=== PATIENT | male | born 1960 | race African-American/Black ===

== ENCOUNTER 2017-03-27 19:36 | Emergency (ER) | payer OTHER ==
[2017-03-27] MEDS ORDERED: Dexamethasone 4 MG TAB ONE (19:50)
== END 2017-03-27 20:02 | disposition home or self-care (01) ==
LOC: MADERS 19:36
DX: L25.5 Unspecified contact dermatitis due to plants, except food (principal); I10 Essential (primary) hypertension; F32.9 Major depressive disorder, single episode, unspecified; F17.210 Nicotine dependence, cigarettes, uncomplicated; Z79.899 Other long term (current) drug therapy
CPT/HCPCS: 99282; J8540

== ENCOUNTER 2017-04-05 15:59 | Emergency (ER) | payer OTHER ==
[2017-04-05] MEDS ORDERED: Tobramycin Sulfate 0.3% Ophth Susp 5 ml Bottle ONE (17:25)
[2017-04-05] MEDS ORDERED: HYDROcodone/Acetaminophen 10/325 mg Tablet ONE (17:29)
[2017-04-05] MEDS ORDERED: Naproxen 500 MG TAB ONE (17:29)
== END 2017-04-05 17:40 | disposition home or self-care (01) ==
LOC: MADERS 15:59
DX: S05.01XA Injury of conjunctiva and corneal abrasion without foreign body, right eye, initial encounter (principal); I10 Essential (primary) hypertension; F32.9 Major depressive disorder, single episode, unspecified; F17.210 Nicotine dependence, cigarettes, uncomplicated; X58.XXXA Exposure to other specified factors, initial encounter
CPT/HCPCS: 99283

== ENCOUNTER 2017-07-23 07:45 | Emergency (ER) | payer OTHER ==
[2017-07-23] MEDS ORDERED: Ketorolac Tromethamine 60 MG/2 ML VIAL ONE (08:28)
--- NOTE | 2017-07-23 09:24 | RAD ---
FOUR VIEWS RIGHT KNEE: HISTORY: Fall earlier in the day with right-sided knee pain. FINDINGS: AP, lateral, and both oblique views right knee are obtained. Four views right knee demonstrate no evidence of right knee fractures, subluxations, or bony lesions. IMPRESSION: Normal 4 views right knee. POS: C
--- NOTE | 2017-07-23 09:25 | RAD ---
THREE VIEWS RIGHT SHOULDER: HISTORY: Pain with fall. FINDINGS: AP internally, externally, and scapula-Y views right shoulder are obtained. There is some mild right AC Joint degenerative changes and osteophytes. No evidence of acute fractur es, subluxations, or bony lesions seen. IMPRESSION: Normal 3 views right shoulder. POS: C
--- NOTE | 2017-07-23 09:28 | RAD ---
AP VIEW CHEST: HISTORY: Fall with right-sided pain. FINDINGS: AP vie chest is obtained. Ectasia of the aorta is seen. The lungs are well aerated. No evidence of active intrathoracic disea se is seen. No evidence of effusions, pneumothorax is seen. IMPRESSION: Unremarkable AP view chest. POS: C
== END 2017-07-23 09:30 | disposition home or self-care (01) ==
LOC: MADERS 07:45
DX: S43.401A Unspecified sprain of right shoulder joint, initial encounter (principal); S80.01XA Contusion of right knee, initial encounter; M54.9 Dorsalgia, unspecified; I10 Essential (primary) hypertension; G89.29 Other chronic pain; F32.9 Major depressive disorder, single episode, unspecified; F17.210 Nicotine dependence, cigarettes, uncomplicated; Z79.899 Other long term (current) drug therapy; W01.0XXA Fall on same level from slipping, tripping and stumbling without subsequent striking against object, initial encounter
CPT/HCPCS: 71010; 96372; J1885

== ENCOUNTER 2018-03-27 11:18 | Emergency (ER) | payer OTHER ==
[2018-03-27] MEDS ORDERED: Proparacaine 0.5% Opth 15 ML BOT ONE (12:08)
== END 2018-03-27 12:51 | disposition home or self-care (01) ==
LOC: MADERS 11:18
DX: L23.7 Allergic contact dermatitis due to plants, except food (principal); H10.9 Unspecified conjunctivitis; I10 Essential (primary) hypertension; F17.210 Nicotine dependence, cigarettes, uncomplicated
CPT/HCPCS: 99282

== ENCOUNTER 2018-06-08 08:46 | Emergency (ER) | payer OTHER | END 2018-06-08 09:10 | disposition home or self-care (01) | LOC: MADERS 08:46 | DX: L25.5 Unspecified contact dermatitis due to plants, except food (principal); K02.9 Dental caries, unspecified | CPT/HCPCS: 99283 ==

== ENCOUNTER 2019-03-09 08:43 | Emergency (ER) | payer OTHER ==
[2019-03-09] MEDS ORDERED: Ibuprofen 800 MG TAB ONE ×2 (09:04→09:07)
== END 2019-03-09 09:05 | disposition home or self-care (01) ==
LOC: MADERS 08:43
DX: L23.7 Allergic contact dermatitis due to plants, except food (principal); K02.9 Dental caries, unspecified; F32.9 Major depressive disorder, single episode, unspecified; I10 Essential (primary) hypertension; F17.210 Nicotine dependence, cigarettes, uncomplicated; Z79.899 Other long term (current) drug therapy
CPT/HCPCS: 99282

== ENCOUNTER 2019-05-14 17:56 | Emergency (ER) | payer OTHER | END 2019-05-14 18:44 | disposition home or self-care (01) | LOC: MADERS 17:56 | DX: L23.7 Allergic contact dermatitis due to plants, except food (principal); I10 Essential (primary) hypertension; F17.210 Nicotine dependence, cigarettes, uncomplicated; F32.9 Major depressive disorder, single episode, unspecified; Z79.899 Other long term (current) drug therapy | CPT/HCPCS: 99282 ==

== ENCOUNTER 2019-08-27 09:42 | Emergency (ER) | payer OTHER | END 2019-08-27 10:11 | disposition home or self-care (01) | LOC: MADERS 09:42 | DX: K64.9 Unspecified hemorrhoids (principal); F32.9 Major depressive disorder, single episode, unspecified; I10 Essential (primary) hypertension; F17.210 Nicotine dependence, cigarettes, uncomplicated; Z79.899 Other long term (current) drug therapy | CPT/HCPCS: 99282 ==

== ENCOUNTER 2020-09-29 11:55 | Emergency (ER) | payer OTHER ==
--- NOTE | 2020-09-29 12:29 | RAD ---
Exam: XR Shoulder Rt 3 View STANDARD HISTORY: Right shoulder pain after a fall. COMPARISON: 07/23/2017 FINDINGS: The distal right clavicle is superiorly and mildly posteriorly displaced with respect to the acromion which does represent an interval change when compared to the prior exam and suggests acromioclavicular joint separation. No fracture or dislocation is otherwise seen. No other interval c hange. IMPRESSION: Imaging findings most suggestive of a grade 4 acromioclavicular joint separation. No fracture is seen .
[2020-09-29] MEDS ORDERED: HYDROcodone/Acetaminophen 5/325 mg Tablet ONE (12:38)
== END 2020-09-29 13:03 | disposition home or self-care (01) ==
LOC: MADERS 11:55
DX: S43.101A Unspecified dislocation of right acromioclavicular joint, initial encounter (principal); I10 Essential (primary) hypertension; F17.290 Nicotine dependence, other tobacco product, uncomplicated; Z79.899 Other long term (current) drug therapy; W18.30XA Fall on same level, unspecified, initial encounter

== ENCOUNTER 2021-10-19 16:37 | Emergency (ER) | payer OTHER ==
[~2021-10-19 16:37] MED LIST: Sodium Chloride 0.9% 1,000 ML BAG ONE
[2021-10-19] MEDS ORDERED: Sodium Chloride 0.9% 100 ML ONE (17:46)
[2021-10-19] MEDS ORDERED: Sodium Chloride 0.9% 1,000 ML ONE (17:46)
[2021-10-19] MEDS ORDERED: Cefepime 2 GM VIAL ONE (17:46)
[2021-10-19 18:07] LABS: Band 3 % (5-11); Hemoglobin 14.2 g/dL (14.0-18.0); Lymphocytes 8 % (21-51); MDiff Complete? YES; Mean Corpuscular HGB CONC 32.9 g/dL (32.0-36.0); Mean Corpuscular Volume 88.1 fL (78.0-98.0); Mean Platelet Volume 6.4 fL (7.4-10.4); Monocytes 9 % (0-10); Neutrophil 80 % (42-75); Platelet Count 288 thou/uL (130-400); Platelet Morphology Comment Appears Adequate; RBC Distribution Width 10.6 % (11.5-14.5); Red Blood Cell (RBC) Count 4.91 mill/uL (4.70-6.10); White Blood Cell (WBC) Count 26.1 thou/uL (4.8-10.8)
[2021-10-19 18:08] LABS: ALT (SGPT) 24 U/L (8-55); AST (SGOT) 33 U/L (5-34); Albumin 3.5 g/dL (3.4-4.8); Alkaline Phosphatase 98 U/L (40-110); Anion Gap 15 mmol/L (10-20); BUN (Urea Nitrogen) 15 mg/dL (8.4-25.7); CK (CPK) 326 U/L (30-200); Calc. Creatinine Clearance 0 mL/min (70-130); Calcium 8.8 mg/dL (7.8-10.44); Carbon Dioxide 25 mmol/L (23-31); Chloride 100 mmol/L (98-107); Globulin 3.4 g/dL (2.4-3.5); Glucose 113 mg/dL (80-115); Potassium 3.9 mmol/L (3.5-5.1); Protein, Total 6.9 g/dL (5.8-8.1); Sodium 136 mmol/L (136-145)
[2021-10-19 18:12] LABS: Bilirubin Negative (Negative); Blood, Urine Large (Negative); Clarity Slightly Cloudy (Clear); Glucose, Urine (Dipstick) Negative (Negative); Ketone, Urine Negative (Negative); Leukocyte Moderate (Negative); Nitrite Positive (Negative); Protein, Urine (Dipstick) Trace mg/dL (Neg-Trace)
[2021-10-19 18:20] LABS: RBC/HPF Greater than 50 HPF (0-3)
[2021-10-19 18:21] LABS: Amphetamine Detected (NotDetected); Bacteria/HPF 2+ HPF (None Seen); Barbiturates Screen Not Detected (NotDetected); Benzodiazepine Screen Not Detected (NotDetected); Cocaine Metabolite Screen Not Detected (NotDetected); Medtox Control Line Valid? VALID (VALID); Methadone Not Detected (NotDetected); Methamphetamine Detected (NotDetected); Opiate Screen Not Detected (NotDetected); Oxycodone Screen Not Detected (NotDetected); Phencyclidine (PCP) Not Detected (NotDetected); Squamous Epithelial 0-3 HPF (0-3); THC/Cannabinoid Screen Detected (NotDetected); Tricyclic Screen Not Detected (NotDetected); WBC/HPF Greater Than 50 HPF (0-3)
[2021-10-19] MEDS ORDERED: Ibuprofen 800 MG TAB ONE (18:30)
[2021-10-21 11:52] LABS: Chlam.trachomatis by PCR,Urine Not Detected (NotDetected)
== END 2021-10-19 21:25 | disposition home or self-care (01) ==
LOC: MADERS 16:37
DX: N45.3 Epididymo-orchitis (principal); F15.20 Other stimulant dependence, uncomplicated; E86.0 Dehydration; I10 Essential (primary) hypertension; F17.200 Nicotine dependence, unspecified, uncomplicated; Z79.899 Other long term (current) drug therapy
CPT/HCPCS: 36415; 71045; 80053; 80306; 81003; 81015; 82550; 83605; 85025; 86140; 87040; 87077; 87086; 87186; 87491; 87591; 96365; 96366; J0692; J1956; J3490; J7050

== ENCOUNTER 2022-08-01 17:33 | Emergency (ER) | payer OTHER ==
[2022-08-01 18:46] LABS: #Basophils 0.1 thou/uL (0.0-0.2); #Eosinphils 0.3 thou/uL (0.0-0.7); #Lymphocytes 2.2 thou/uL (1.20-3.40); #Monocytes 0.7 thou/uL (0.11-0.59); #Neutrophils 4.2 thou/uL (1.40-6.50); %Basophils 1.4 % (0.0-1.0); %Eosinophils 4.1 % (0.0-10.0); %Lymphocytes 28.5 % (21.0-51.0); %Monocytes 9.6 % (0.0-10.0); %Neutrophils 56.3 % (42.0-75.0); Hemoglobin 13.3 g/dL (14.0-18.0); Mean Corpuscular HGB CONC 32.2 g/dL (32.0-36.0); Mean Corpuscular Hemoglobin 30.1 pg (27.0-31.0); Mean Corpuscular Volume 93.5 fl (78.0-98.0); Mean Platelet Volume 5.9 fL (7.4-10.4); Platelet Count 359 10x3/uL (130-400); RBC Distribution Width 11.9 % (11.5-14.5); Red Blood Cell (RBC) Count 4.41 mill/uL (4.70-6.10); White Blood Cell (WBC) Count 7.5 10x3/uL (4.8-10.8)
[2022-08-01 19:00] LABS: INR-International Normal Ratio 0.9; Prothrombin Time 12.4 sec (12.0-14.7)
[2022-08-01 19:01] LABS: PTT 37.9 sec (22.9-36.1)
[2022-08-01 19:02] LABS: Anion Gap 12 mmol/L (10-20); BUN (Urea Nitrogen) 11 mg/dL (8.4-25.7); CK (CPK) 412 U/L (30-200); Calc. Creatinine Clearance 0 mL/min (70-130); Calcium 8.9 mg/dL (7.8-10.44); Carbon Dioxide 28 mmol/L (23-31); Chloride 104 mmol/L (98-107); Estimated GFR 76; Glucose 74 mg/dL (80-115); Potassium 3.8 mmol/L (3.5-5.1); Sodium 140 mmol/L (136-145)
[2022-08-01 19:03] LABS: D-Dimer Test 0.49 *mcg/mL (0.27-0.43)
[2022-08-01 19:05] LABS: CKMB 10.2 ng/mL (0-6.6)
[2022-08-01] MEDS ORDERED: Furosemide 40 MG TAB ONE (19:34)
[2022-08-01] MEDS ORDERED: Amlodipine 5 MG TAB ONE (19:34)
== END 2022-08-01 19:41 | disposition home or self-care (01) ==
LOC: MADERS 17:33
DX: R60.9 Edema, unspecified (principal); I10 Essential (primary) hypertension; F17.200 Nicotine dependence, unspecified, uncomplicated
CPT/HCPCS: 80048; 82550; 82553; 83880; 84484; 85025; 85379; 85610; 85730; 93005

== ENCOUNTER 2022-09-26 14:36 | Emergency (ER) | payer OTHER ==
[2022-09-26 17:23] LABS: #Basophils 0.2 thou/uL (0.0-0.2); #Eosinphils 1.1 thou/uL (0.0-0.7); #Lymphocytes 2.4 thou/uL (1.20-3.40); %Basophils 1.7 % (0.0-1.0); %Lymphocytes 25.1 % (21.0-51.0); %Monocytes 10.5 % (0.0-10.0); %Neutrophils 51.8 % (42.0-75.0); Hemoglobin 15.5 g/dL (14.0-18.0); Mean Corpuscular Hemoglobin 29.1 pg (27.0-31.0); Mean Platelet Volume 6.7 fL (7.4-10.4); Platelet Count 416 10x3/uL (130-400); RBC Distribution Width 11.9 % (11.5-14.5); Red Blood Cell (RBC) Count 5.33 mill/uL (4.70-6.10); White Blood Cell (WBC) Count 9.7 10x3/uL (4.8-10.8)
[2022-09-26 17:45] LABS: ALT (SGPT) 24 U/L (8-55); AST (SGOT) 31 U/L (5-34); Albumin 3.6 g/dL (3.4-4.8); Alkaline Phosphatase 139 U/L (40-110); Anion Gap 16 mmol/L (10-20); BUN (Urea Nitrogen) 14 mg/dL (8.4-25.7); Bilirubin, Total 0.4 mg/dL (0.2-1.2); Calc. Creatinine Clearance 0 mL/min (70-130); Calcium 9.1 mg/dL (7.8-10.44); Carbon Dioxide 23 mmol/L (23-31); Chloride 103 mmol/L (98-107); Estimated GFR 76; Globulin 4.1 g/dL (2.4-3.5); Glucose 82 mg/dL (80-115); Potassium 4.3 mmol/L (3.5-5.1); Protein, Total 7.7 g/dL (5.8-8.1); Sodium 138 mmol/L (136-145)
[2022-09-26] MEDS ORDERED: Amlodipine 5 MG TAB ONE (18:43)
== END 2022-09-26 18:47 | disposition home or self-care (01) ==
LOC: MADERS 14:36
DX: L03.115 Cellulitis of right lower limb (principal); I10 Essential (primary) hypertension; F17.210 Nicotine dependence, cigarettes, uncomplicated
CPT/HCPCS: 83880; 85379; 93005; 36415-59

== ENCOUNTER 2022-10-04 04:22 | Emergency (ER) | payer OTHER ==
[2022-10-04] MEDS ORDERED: Ketorolac Tromethamine 60 MG/2 ML VIAL ONE (05:06)
[2022-10-04] MEDS ORDERED: Acetaminophen 500 MG TAB ONE (05:06)
[2022-10-04 05:22] LABS: #Basophils 0.1 thou/uL (0.0-0.2); #Eosinphils 0.4 thou/uL (0.0-0.7); #Lymphocytes 2.1 thou/uL (1.20-3.40); #Monocytes 0.8 thou/uL (0.11-0.59); #Neutrophils 4.6 thou/uL (1.40-6.50); %Basophils 1.4 % (0.0-1.0); %Eosinophils 5.2 % (0.0-10.0); %Lymphocytes 25.9 % (21.0-51.0); %Monocytes 10.4 % (0.0-10.0); %Neutrophils 57.1 % (42.0-75.0); Hemoglobin 14.7 g/dL (14.0-18.0); Mean Corpuscular HGB CONC 32.7 g/dL (32.0-36.0); Mean Corpuscular Hemoglobin 29.3 pg (27.0-31.0); Mean Corpuscular Volume 89.5 fl (78.0-98.0); Mean Platelet Volume 5.8 fL (7.4-10.4); Platelet Count 401 10x3/uL (130-400); RBC Distribution Width 11.3 % (11.5-14.5); Red Blood Cell (RBC) Count 5.01 mill/uL (4.70-6.10); White Blood Cell (WBC) Count 8.1 10x3/uL (4.8-10.8)
[2022-10-04 05:29] LABS: Bilirubin Negative (Negative); Blood, Urine Negative (Negative); Clarity Clear (Clear); Glucose, Urine (Dipstick) Negative (Negative); Ketone, Urine Negative (Negative); Leukocyte Negative (Negative); Nitrite Negative (Negative); Protein, Urine (Dipstick) Negative (Neg-Trace)
[2022-10-04 05:30] LABS: Specific Gravity, Urine 1.026 (1.002-1.036)
[2022-10-04 05:41] LABS: ALT (SGPT) 27 U/L (8-55); AST (SGOT) 31 U/L (5-34); Albumin 3.5 g/dL (3.4-4.8); Alkaline Phosphatase 152 U/L (40-110); Anion Gap 14 mmol/L (10-20); BUN (Urea Nitrogen) 17 mg/dL (8.4-25.7); Bilirubin, Total 0.2 mg/dL (0.2-1.2); Calc. Creatinine Clearance 0 mL/min (70-130); Calcium 9.3 mg/dL (7.8-10.44); Carbon Dioxide 25 mmol/L (23-31); Chloride 103 mmol/L (98-107); Estimated GFR 92; Globulin 3.8 g/dL (2.4-3.5); Glucose 88 mg/dL (80-115); Potassium 3.8 mmol/L (3.5-5.1); Protein, Total 7.3 g/dL (5.8-8.1); Sodium 138 mmol/L (136-145)
== END 2022-10-04 06:14 | disposition short-term general hospital (02) ==
LOC: MADERS 04:22
DX: I83.218 Varicose veins of right lower extremity with both ulcer of other part of lower extremity and inflammation (principal); I10 Essential (primary) hypertension; F17.200 Nicotine dependence, unspecified, uncomplicated; Z79.899 Other long term (current) drug therapy; R79.1 Abnormal coagulation profile
CPT/HCPCS: 36415; 80053; 81003; 83880; 85025; 85379; 96372; 99284; J1885

== ENCOUNTER 2022-10-31 20:49 | Emergency (ER) | payer OTHER ==
[2022-10-31] MEDS ORDERED: Acetaminophen 500 MG TAB ONE (21:46)
== END 2022-10-31 22:09 | disposition home or self-care (01) ==
LOC: MADERS 20:49
DX: Z48.00 Encounter for change or removal of nonsurgical wound dressing (principal); I10 Essential (primary) hypertension; F17.200 Nicotine dependence, unspecified, uncomplicated
CPT/HCPCS: 99283

== ENCOUNTER 2023-03-09 19:46 | Emergency (ER) | payer OTHER ==
[2023-03-09] MEDS ORDERED: Piperacillin/Tazobactam 3.375 GM VIAL ONE (20:51)
[2023-03-09] MEDS ORDERED: Sodium Chloride 0.9% 100 ML ONE ×2 (20:51→21:11)
[2023-03-09] MEDS ORDERED: Amlodipine 5 MG TAB ONE (20:52)
[2023-03-09 20:58] LABS: #Basophils 0.2 thou/uL (0.0-0.2); #Eosinphils 0.2 thou/uL (0.0-0.7); #Lymphocytes 1.9 thou/uL (1.20-3.40); #Monocytes 1.1 thou/uL (0.11-0.59); #Neutrophils 4.5 thou/uL (1.40-6.50); %Basophils 2.3 % (0.0-1.0); %Eosinophils 2.6 % (0.0-10.0); %Lymphocytes 24.3 % (21.0-51.0); %Monocytes 13.6 % (0.0-10.0); %Neutrophils 57.3 % (42.0-75.0); Hemoglobin 12.5 g/dL (14.0-18.0); Mean Corpuscular HGB CONC 31.6 g/dL (32.0-36.0); Mean Corpuscular Volume 88.7 fl (78.0-98.0); Mean Platelet Volume 7.3 fL (7.4-10.4); Platelet Count 349 10x3/uL (130-400); RBC Distribution Width 13.3 % (11.5-14.5); Red Blood Cell (RBC) Count 4.46 mill/uL (4.70-6.10); White Blood Cell (WBC) Count 7.9 10x3/uL (4.8-10.8)
[2023-03-09] MEDS ORDERED: Piperacillin/Tazobactam 4.5 GM VIAL ONE (21:11)
[2023-03-09 21:12] LABS: ALT (SGPT) 21 U/L (8-55); AST (SGOT) 29 U/L (5-34); Albumin 3.4 g/dL (3.4-4.8); Alkaline Phosphatase 143 U/L (40-110); Anion Gap 13 mmol/L (10-20); BUN (Urea Nitrogen) 15 mg/dL (8.4-25.7); Bilirubin, Total 0.2 mg/dL (0.2-1.2); Calc. Creatinine Clearance 0 mL/min (70-130); Calcium 8.8 mg/dL (7.8-10.44); Carbon Dioxide 29 mmol/L (23-31); Chloride 102 mmol/L (98-107); Estimated GFR 83; Globulin 3.9 g/dL (2.4-3.5); Glucose 91 mg/dL (80-115); Potassium 4.4 mmol/L (3.5-5.1); Protein, Total 7.3 g/dL (5.8-8.1); Sodium 140 mmol/L (136-145)
[2023-03-09] MEDS ORDERED: HYDROcodone/Acetaminophen 5/325 mg Tablet ONE (21:23)
[2023-03-09 22:08] LABS: Bacteria/HPF Rare-Few HPF (None Seen); Bilirubin Negative (Negative); Blood, Urine Negative (Negative); CAUTI Indications for Culture Dysuria,urgency,freq; Clarity Hazy (Clear); Glucose, Urine (Dipstick) Negative (Negative); Ketone, Urine Negative (Negative); Leukocyte Negative (Negative); Nitrite Negative (Negative); Protein, Urine (Dipstick) Negative (Neg-Trace); RBC/HPF None Seen HPF (0-3); Squamous Epithelial 0-3 HPF (0-3); Urobilinogen 0.2 mg/dL (Less than 2); WBC/HPF 0-3 HPF (0-3); pH, Urine 7.5 (5.0-9.0)
[2023-03-09 22:10] LABS: Urine Culture Reflex No No
== END 2023-03-10 00:35 | disposition short-term general hospital (02) ==
LOC: MADERS 19:46
DX: L03.115 Cellulitis of right lower limb (principal); I83.019 Varicose veins of right lower extremity with ulcer of unspecified site; I10 Essential (primary) hypertension; F17.220 Nicotine dependence, chewing tobacco, uncomplicated; Z79.899 Other long term (current) drug therapy
CPT/HCPCS: 80053; 81001; 83605; 85025; 87040; 96365; J2543; J3490

== ENCOUNTER 2023-10-11 11:02 | Emergency (ER) | payer OTHER ==
[2023-10-11] MEDS ORDERED: Aspirin Chewable 81 MG TAB ONE (11:39)
[2023-10-11 12:21] LABS: Anisocytosis SLIGHT = 6-15 cells (100X) (0-5/hpf); Band 4 % (5-11); Hematocrit 39.7 % (42.0-52.0); Hemoglobin 11.9 g/dL (14.0-18.0); Hypochromia SLIGHT = 6-15 cells (100X) (0-5/hpf); Lymphocytes 9 % (21-51); MDiff Complete? YES; Manual Diff?? YES; Mean Corpuscular HGB CONC 30.1 g/dL (32.0-36.0); Mean Corpuscular Hemoglobin 23.1 pg (27.0-31.0); Mean Corpuscular Volume 76.6 fl (78.0-98.0); Mean Platelet Volume 6.3 fL (7.4-10.4); Microcytosis SLIGHT = 6-15 cells (100X) (0-5/hpf); Monocytes 13 % (0-10); Neutrophil 67 % (42-75); Platelet Count 457 10x3/uL (130-400); Polychromasia SLIGHT = 2-3 cells (100X) (0-2/hpf); RBC Distribution Width 18.6 % (11.5-14.5); Red Blood Cell (RBC) Count 5.18 mill/uL (4.70-6.10); White Blood Cell (WBC) Count 7.8 10x3/uL (4.8-10.8)
[2023-10-11 12:22] LABS: Reactive Lymphocytes 7 % (0-10)
[2023-10-11 12:23] LABS: ALT (SGPT) 26 U/L (8-55); AST (SGOT) 38 U/L (5-34); Albumin 3.4 g/dL (3.4-4.8); Alkaline Phosphatase 117 U/L (40-110); Anion Gap 16 mmol/L (10-20); BUN (Urea Nitrogen) 21 mg/dL (8.4-25.7); Bilirubin, Total 0.5 mg/dL (0.2-1.2); Calc. Creatinine Clearance 0 mL/min (70-130); Calcium 9.1 mg/dL (7.8-10.44); Carbon Dioxide 26 mmol/L (23-31); Chloride 101 mmol/L (98-107); Estimated GFR 83; Globulin 4.4 g/dL (2.4-3.5); Glucose 95 mg/dL (80-115); Magnesium 1.8 mg/dL (1.6-2.6); Nucleated RBC (Manual Ct) 0 % (0); Platelet Adequacy Comment Appears Increased; Potassium 4.5 mmol/L (3.5-5.1); Protein, Total 7.8 g/dL (5.8-8.1); Sodium 138 mmol/L (136-145)
[2023-10-11 12:24] LABS: Troponin I 0.011 ng/mL (< 0.028)
[2023-10-11 14:34] LABS: Troponin I Less than 0.010 ng/mL (< 0.028)
[2023-10-11 15:00] LABS: Acetaminophen Less than 10 mcg/mL (10.0-30.0); Alcohol Less than 10.0 mg/dL (Less than 10); Salicylate Less than 8.0 mg/dL (15.0-30.0)
== END 2023-10-11 16:45 | disposition home or self-care (01) ==
LOC: MADERS 11:02
DX: R07.9 Chest pain, unspecified (principal); I10 Essential (primary) hypertension; F17.200 Nicotine dependence, unspecified, uncomplicated
CPT/HCPCS: 36415; 71045; 80053; 80307; 83690; 83735; 83880; 84484; 85025; 87804; 93005

== ENCOUNTER 2024-04-09 09:54 | Emergency (ER) | payer MEDICARE, OTHER ==
[2024-04-09] MEDS ORDERED: traMADol HCl 50 MG TAB ONE (10:48)
[2024-04-09] MEDS ORDERED: Vancomycin 1 GM VIAL ONE (10:49)
[2024-04-09] MEDS ORDERED: Sodium Chloride 0.9% 250 ML 250 ML ONE (10:49)
[2024-04-09 11:01] LABS: #Basophils 0.2 thou/uL (0.0-0.2); #Eosinphils 0.2 thou/uL (0.0-0.7); #Lymphocytes 1.5 thou/uL (1.20-3.40); #Neutrophils 4.2 thou/uL (1.40-6.50); %Basophils 2.7 % (0.0-1.0); %Eosinophils 2.8 % (0.0-10.0); %Lymphocytes 21.7 % (21.0-51.0); %Monocytes 14.4 % (0.0-10.0); %Neutrophils 58.5 % (42.0-75.0); Hematocrit 32.3 % (42.0-52.0); Hemoglobin 9.4 g/dL (14.0-18.0); Mean Corpuscular Hemoglobin 22.5 pg (27.0-31.0); Mean Corpuscular Volume 77.5 fl (78.0-98.0); Mean Platelet Volume 4.9 fL (7.4-10.4); Platelet Count 522 10x3/uL (130-400); RBC Distribution Width 17.1 % (11.5-14.5); Red Blood Cell (RBC) Count 4.17 mill/uL (4.70-6.10); White Blood Cell (WBC) Count 7.1 10x3/uL (4.8-10.8)
[2024-04-09 11:02] LABS: Prothrombin Time 13.4 sec (12.0-14.7)
[2024-04-09 11:03] LABS: PTT 43.5 sec (22.9-36.1)
[2024-04-09 11:05] LABS: Anisocytosis SLIGHT = 6-15 cells (100X) (0-5/hpf); Platelet Adequacy Comment Appears Increased
[2024-04-09 11:09] LABS: Anion Gap 16 mmol/L (10-20); BUN (Urea Nitrogen) 17 mg/dL (8.4-25.7); Calc. Creatinine Clearance 0 mL/min (70-130); Calcium 8.4 mg/dL (7.8-10.44); Carbon Dioxide 20 mmol/L (23-31); Chloride 107 mmol/L (98-107); Estimated GFR 90; Glucose 90 mg/dL (80-115); Sodium 139 mmol/L (136-145)
[2024-04-09] MEDS ORDERED: HYDROcodone/Acetaminophen 5/325 mg Tablet ONE (11:19)
[2024-04-09] MEDS ORDERED: cefTRIAXone (ROCEPHIN) 1 GM VIAL ONE (11:57)
[2024-04-09] MEDS ORDERED: Sodium Chloride 0.9% 100 ML ONE (11:57)
== END 2024-04-09 12:51 | disposition home or self-care (01) ==
LOC: MADERS 09:54
DX: L03.115 Cellulitis of right lower limb (principal); I10 Essential (primary) hypertension; F17.210 Nicotine dependence, cigarettes, uncomplicated; Z79.899 Other long term (current) drug therapy
CPT/HCPCS: 73590; 80048; 83605; 85025; 85610; 85730; 86140; J0696; J3370; J7050; 96365; 96375

== ENCOUNTER 2024-09-19 15:58 | Outpatient (CLI) | payer MEDICARE, OTHER | END 2024-09-19 15:59 | disposition home or self-care (01) | LOC: MADRAD 15:58 | PROVIDERS: ATTEND Family Medicine | DX: L97.919 Non-pressure chronic ulcer of unspecified part of right lower leg with unspecified severity (principal); R60.0 Localized edema ==

== ENCOUNTER 2025-07-31 18:43 | Emergency (ER) | payer OTHER ==
[2025-07-31] MEDS ORDERED: Fluorescein Opthalmic Strip ONE (19:06)
[2025-07-31] MEDS ORDERED: Tetracaine 0.5% PF 4 ML BOT ONE (19:06)
== END 2025-07-31 20:28 | disposition home or self-care (01) ==
LOC: MADERS 18:43
DX: H57.12 Ocular pain, left eye (principal); I10 Essential (primary) hypertension; F17.210 Nicotine dependence, cigarettes, uncomplicated
CPT/HCPCS: 70480